=== PATIENT | female | born 1995 | race African-American/Black ===

== ENCOUNTER 2020-01-09 01:10 | Emergency (ER) | payer BC, MEDICAID ==
[~2020-01-09] VITALS: Ht 172.7 cm; Wt 100.0 kg
[2020-01-09] MEDS ORDERED: DEXAMETHASONE 10 MG/ML VIAL IM ONE (02:15)
[2020-01-09 02:46] VITALS: BP 157/91
== END 2020-01-09 02:46 | disposition home or self-care (01) ==
LOC: ER 01:10
DX: J45.909 Unspecified asthma, uncomplicated (principal); Z98.890 Other specified postprocedural states; Z90.89 Acquired absence of other organs
CPT/HCPCS: 96372; 99283; J1100

== ENCOUNTER 2020-01-18 07:35 | Emergency (ER) | payer MEDICAID ==
[~2020-01-18] VITALS: Ht 172.7 cm; Wt 100.0 kg
[2020-01-18 07:36] VITALS: BP 133/84
[2020-01-18] MEDS ORDERED: METHYLPREDNISOLONE SOD SUCC 125 MG/2 ML VIAL IM ONE (08:15)
== END 2020-01-18 08:51 | disposition home or self-care (01) ==
LOC: ER 08:24
DX: J45.901 Unspecified asthma with (acute) exacerbation (principal); Z98.890 Other specified postprocedural states
CPT/HCPCS: 96372; 99283; J2930

== ENCOUNTER 2020-06-19 01:01 | Emergency (ER) | payer BC, MEDICAID ==
[~2020-06-19] VITALS: Ht 172.7 cm; Wt 100.0 kg
[2020-06-19] MEDS ORDERED: ALBUTEROL (0.083%) 2.5MG/3ML NEB HHN STA (01:44)
[2020-06-19] MEDS ORDERED: IPRATROPIUM BROMIDE (0.02%) 0.5MG/2.5ML NEB HHN STA (01:44)
[2020-06-19] MEDS ORDERED: DEXAMETHASONE 10 MG/ML VIAL IM ONE (01:45)
[2020-06-19] MEDS ORDERED: FLUT1DIS6 INH (02:14)
[2020-06-19] MEDS ORDERED: P50 MT (02:15)
[2020-06-19 03:22] VITALS: BP 133/82
== END 2020-06-19 03:23 | disposition home or self-care (01) ==
LOC: ER 01:01
DX: J45.909 Unspecified asthma, uncomplicated (principal)
CPT/HCPCS: 94644; 96372; 99285; J1100; Z7610